=== PATIENT | male | born 1970 | race Caucasian/White ===

== ENCOUNTER 2023-07-16 15:28 | Observation (INO) | payer OTHER, SELFPAY ==
[2023-07-16] VITALS (8 sets, daily range): BP systolic 138–166; BP diastolic 85–95; PULSE 68–78; RESP 16; TEMP 36.6–37.1; O2SAT 94–100; BMI 28.1; BMI 25.8; BMI 24.9
--- NOTE | 2023-07-16 15:33 | CT_ITS ---
We are attempting to reach an attending provider to discuss findings. An addendum with communication details will be sent when the communication is complete. EXAM: CT ANGIOGRAPHY HEAD AND NECK WITH INTRAVENOUS CONTRAST CLINICAL INDICATION: Neuro deficit, acute, stroke suspected TECHNIQUE: [place]/head and neck CT angiography protocol performed with intravenous contrast. This CT exam was performed using one or more of the following dose reduction techniques: automated exposure control, adjustment of the mA and/or kV according to patient size, and/or use of iterative reconstruction technique. MIP reconstructed images were created and reviewed. CONTRAST: IV 100mL Isovue-[id number] RADIATION DOSE: CTDIvol = 19.59 mGy, DLP = 748.02 mGy-cm COMPARISON: No relevant prior studies available. FINDINGS: HEAD: RIGHT ANTERIOR CEREBRAL ARTERY: Unremarkable. No significant stenosis at the visualized segments. Anterior communicating artery is present. No aneurysm. RIGHT MIDDLE CEREBRAL ARTERY: Unremarkable. No significant stenosis at the visualized segments. No aneurysm. RIGHT POSTERIOR CEREBRAL ARTERY: Unremarkable. No occlusion or significant stenosis. No aneurysm. RIGHT INTRACRANIAL INTERNAL CAROTID ARTERY: Unremarkable. No significant stenosis. No dissection or occlusion. RIGHT INTRACRANIAL VERTEBRAL ARTERY: Unremarkable. No significant stenosis. No dissection or occlusion. LEFT ANTERIOR CEREBRAL ARTERY: Unremarkable. No significant stenosis at the visualized segments. No aneurysm. LEFT MIDDLE CEREBRAL ARTERY: Unremarkable. No significant stenosis at the visualized segments. No aneurysm. LEFT POSTERIOR CEREBRAL ARTERY: Unremarkable. No occlusion or significant stenosis. No aneurysm. LEFT INTRACRANIAL INTERNAL CAROTID ARTERY: Unremarkable. No significant stenosis. No dissection or occlusion. LEFT INTRACRANIAL VERTEBRAL ARTERY: Unremarkable. No significant stenosis. No dissection or occlusion. BASILAR ARTERY: Unremarkable. No significant stenosis. No aneurysm. OTHER VASCULATURE: There are no acute findings of the right and left internal carotid artery. ALL ABOVE CRITERIA BY NASCET. No vascular malformation. NECK: RIGHT COMMON CAROTID ARTERY: Unremarkable. No significant stenosis. No dissection or occlusion. RIGHT EXTRACRANIAL INTERNAL CAROTID ARTERY: Unremarkable. No significant stenosis. No dissection or occlusion. RIGHT EXTERNAL CAROTID ARTERY: Unremarkable. No occlusion. RIGHT EXTRACRANIAL VERTEBRAL ARTERY: Unremarkable. No significant stenosis. No dissection or occlusion. LEFT COMMON CAROTID ARTERY: Unremarkable. No significant stenosis. No dissection or occlusion. LEFT EXTRACRANIAL INTERNAL CAROTID ARTERY: Unremarkable. No significant stenosis. No dissection or occlusion. LEFT EXTERNAL CAROTID ARTERY: Unremarkable. No occlusion. LEFT EXTRACRANIAL VERTEBRAL ARTERY: Unremarkable. No significant stenosis. No dissection or occlusion. BRACHIOCEPHALIC AND SUBCLAVIAN ARTERIES: Unremarkable as visualized. No occlusion or significant stenosis. LUNG APICES: Unremarkable as visualized. HEAD and NECK: BONES/JOINTS: Unremarkable. No discrete lytic or blastic abnormalities. SOFT TISSUES: Unremarkable. OTHER FINDINGS: There are no acute findings of the [place] without a demonstrated aneurysm or hemodynamically significant stenosis. ALL ABOVE CRITERIA BY NASCET. Post-processing of the angiographic images was performed, with axial imaging and 3D reconstruction. MIPS images were obtained. CAROTID STENOSIS REFERENCE USING NASCET CRITERIA: % ICA stenosis = (1 - narrowest ICA diameter/diameter of distal cervical ICA) x 100. Mild - <50% stenosis. Moderate - 50-69% stenosis. Severe - 70-94% stenosis. Near occlusion - 95-99% stenosis. Occluded - 100% stenosis. CT/STROKE CTA Head AND Neck W/Con IMPRESSION: 1. There are no acute findings of the [place] without a demonstrated aneurysm or hemodynamically significant stenosis. ALL ABOVE CRITERIA BY NASCET. 2. There are no acute findings of the right and left internal carotid artery. ALL ABOVE CRITERIA BY NASCET. Electronically Signed: Placido Herrera MD at 16:04 EDT ,
--- NOTE | 2023-07-16 15:33 | CT_ITS ---
We are attempting to reach an attending provider to discuss findings. An addendum with communication details will be sent when the communication is complete. EXAM: CT HEAD WITHOUT INTRAVENOUS CONTRAST CLINICAL INDICATION: Neuro deficit, acute, stroke suspected TECHNIQUE: Multiple axial images were obtained of the head without intravenous contrast. This CT exam was performed using one or more of the following dose reduction techniques: automated exposure control, adjustment of the mA and/or kV according to patient size, and/or use of iterative reconstruction technique. COMPARISON: No relevant prior studies available. FINDINGS: BRAIN AND EXTRA-AXIAL SPACES: Unremarkable. No intra- or extra-axial hemorrhage. No evidence of acute infarct. No intracranial mass or mass effect. There is preservation of the [place]/white matter interface. Posterior fossa structures are unremarkable. Ventricles are appropriate for age. No hydrocephalus. Basal cisterns are patent. BONES/JOINTS: Unremarkable. No discrete lytic or blastic abnormalities. SINUSES: Unremarkable as visualized. Clear. MASTOID AIR CELLS: Unremarkable. Clear. ORBITS: Visualized globes, extraocular muscles, optic nerves and retrobulbar fat appear unremarkable. aspects 10. CT/STROKE Brain/Head without Cont IMPRESSION: Negative head/brain CT without intravenous contrast. Electronically Signed: Placido Herrera MD at 15:53 EDT ,
--- NOTE | 2023-07-16 15:37 | ED.VIS.STROK ---
HPI History of Present Illness Chief Complaint: Stroke Alert Detail of Chief Complaint: Paresthesias Informant: patient Narrative Narrative: Patient presents with paresthesias to left face as well as left arm and left leg. Patient states that he feels like that side of his body is asleep. He believes symptoms started about the time where he started doing laundry today around 12:15 PM. Symptoms seem to improve for short time and then came back. Denies headache. Denies falls or head injuries. He denies trouble with speech or vision. He denies weakness. PFSH PFSH Medical History no medical history Home Medications NK 07/16/23 [History Last Taken Unknown] Allergy/AdvReac Type Severity Reaction Status Date / Time No Known Allergies Allergy Verified 07/16/23 15:45 Surgical History (Updated 07/16/23 @ 15:44 by Rahel Sosa) History of right knee surgery Social History Smoking Status: Never smoker ROS ROS ED Review of Systems ROS Unobtainable: other Constitutional Constitutional ED: Reports lethargy; Denies chills, fever(s), sweats or weight loss Eyes Eyes: Denies blurry vision, change in vision or diplopia ENT ENT ED: Denies rhinorrhea or sore throat Cardiovascular Cardiovascular: Denies chest pain, orthopnea or racing heartbeat Respiratory/Chest Respiratory/Chest: Denies cough, dyspnea, dyspnea on exertion, orthopnea or sputum Gastrointestinal Gastrointestinal: Denies abdominal pain, diarrhea, nausea or vomiting Genitourinary Genitourinary ED: Denies dysuria, hematuria or urinary frequency Musculoskeletal Musculoskeletal: Denies arthralgias, back pain, myalgias or neck pain Integumentary Denies abscess, Abrasions or rash Neurologic Neurologic: Reports paresthesias; Denies headache(s) or weakness Psychiatric Psychiatric: Denies anxiety, depression or suicidal thoughts Endocrine Endocrinology: Denies polydipsia, polyphagia or polyuria Hematologic/Lymphatic Hematologic/Lymphatic: Denies easy bleeding, easy bruising or lymphadenopathy Allergic/Immunologic Allergic/Immunologic ED: Denies mouth swelling, tongue swelling or urticaria EXAM Physical Exam Const Vital Signs: 07/16/23 15:31 07/16/23 15:28 07/16/23 15:44 Temperature 97.8 F Temperature Source Temporal Pulse Rate 78 76 Respiratory Rate 16 16 Blood Pressure 150/88 H 163/91 H Blood Pressure Mean 108 115 Pulse Ox 100 99 Oxygen Delivery Method Room Air Room Air Room Air 07/16/23 16:00 Temperature Temperature Source Pulse Rate 75 Respiratory Rate 16 Blood Pressure 166/95 H Blood Pressure Mean 118 Pulse Ox 97 Oxygen Delivery Method Room Air Positive well nourished and well developed General Appearance ED: well developed and NAD HEENT Reports TM's clear and moist mucous membranes normocephalic and atraumatic; Negative for trauma or tenderness Tympanic Membrane ED: Yes TM's clear Eyes PERRL and EOMs intact bilaterally General Eye ED: Negative for pale conjunctiva or scleral icterus Neck no lymphadenopathy, supple and no JVD General: Negative for tenderness Chest Wall inspection of chest normal and palpation of chest normal Chest: Negative for tenderness Resp normal respiratory effort and clear to auscultation bilaterally Effort and Inspection: Negative for respiratory distress or pain with movement Auscultation: Negative for rhonchi, wheezes or diminished lung sounds Cardio regular rate, regular rhythm, S1 normal heart sound, S2 normal heart sound and no murmurs Peripheral Pulses: pulses 2+ throughout GI normal to inspection, nondistended, normoactive bowel sounds, soft to palpation, non-tender, non-distended and no masses Back/Spine no CVA tenderness and no thoracic nor lumbar tenderness Extremity normal to inspection General Extremety ED: Negative for edema General Extremity: Negative for edema Neuro oriented x3, CN's II-XII intact bilaterally, no sensory deficits noted and gait normal Neuro Narrative: NIH stroke scale is a 1 for the paresthesias however no other focal deficits noted. No weakness noted. Sensorium / Orientation: awake, alert, oriented to person, oriented to place and oriented to time Motor Exam: strength 5/5 throughout and strength abnormal Psych mental status grossly normal Skin no rashes or lesions noted and no wounds MDM MDM MDM Narrative Medical decision making narrative: Patient presents with paresthesias to the left side of his body for about 3 hours and 15 minutes now. No other focal weakness. Stroke team was called on arrival to the emergency department. Patient states that he can still feel me touching his arm and his leg as well as his face. Patient had a negative CT scan of the brain without contrast. Patient was seen by stroke neurologist who did not feel thrombolytics were indicated and I am certainly in agreement. Recommended admission for MRI to complete stroke work-up. CBC with differential obtained showed an elevated white count of 17.8 with hemoglobin of 16 and platelet count of 391. Chemistries unremarkable. Patient tells me he has been under a lot of stress. Lab Data Attestation: I reviewed the patient's lab results. Labs: Laboratory Results - last 24 hr 07/16/23 15:30 WBC 17.8 H RBC 5.33 Hgb 16.0 Hct 48.7 MCV 91.4 MCH 30.0 MCHC 32.9 RDW Std Deviation 46.4 H RDW Coeff of [place] 13.7 Plt Count 391 MPV 9.1 Immature Gran % (Auto) 0.500 Neut % (Auto) 76.2 H Lymph % (Auto) 17.4 L [place] % (Auto) 4.9 Eos % (Auto) 0.4 Baso % (Auto) 0.6 Absolute Neuts (auto) 13.6 H Absolute Lymphs (auto) 3.10 Nucleated RBC % 0 PT 13.2 INR 1.0 APTT 28.5 Sodium 139 Potassium 3.9 Chloride 108 H Carbon Dioxide 25.0 Anion Gap 6 BUN 7 Creatinine 0.88 Estim Creat Clear Calc 106.96 Est GFR (MDRD) Af Amer 118 Est GFR (MDRD) Non-Af 97 BUN/Creatinine Ratio 8.0 L Glucose 89 Calcium 10.1 Troponin I High Sens 10 Radiography Diagnostic Testing: Clinical Impression(s) from Imaging Studies Brain CT 07/16/23 15:33 IMPRESSION: Negative head/brain CT without intravenous contrast. Electronically Signed: Placido Herrera MD at 15:53 EDT , ADDENDUM: 07/16/23 1601 IMPRESSION: Negative head/brain CT without intravenous contrast. N.B. : The above Results were Read Back by Placido Herrera MD to Kathi Mcconnell DO, and understanding confirmed on 07/16/2023 15:54:42 (ET). Electronically Signed: Placido Herrera MD at 15:53 EDT , Head/Neck CTA 07/16/23 15:33 IMPRESSION: 1. There are no acute findings of the [place] without a demonstrated aneurysm or hemodynamically significant stenosis. ALL ABOVE CRITERIA BY NASCET. 2. There are no acute findings of the right and left internal carotid artery. ALL ABOVE CRITERIA BY NASCET. Electronically Signed: Placido Herrera MD at 16:04 EDT , EKG Initial EKG: Attestation: I personally reviewed and interpreted this EKG as follows: Comments: Sinus rhythm with rate 76 bpm with no acute ST segment changes Discharge Plan Triage Chief Complaint: Stroke Alert ED Provider: Kathi Mcconnell Dx/Rx/DC Orders Clinical Impression: Paresthesias, Leukocytosis, Hyperchloremia Prescriptions: No Action NK Primary Care Provider: NOT,DEFINED Referrals: NOT,DEFINED [Primary Care Provider] - Disposition Disposition: Acute Care Hospital
[2023-07-16 15:38] LABS: Absolute Neutrophil Count 13.6 X10^3/uL (2.0-7.7); Basophil% 0.6 % (0-1); Eosinophil# 0.07 X10^3/uL; Eosinophils% 0.4 % (0-5); Hematocrit 48.7 % (40-54); Lymphocyte % 17.4 % (19-41); Mean Corp Hgb Conc 32.9 g/dL (32-36); Mean Corpuscular Volume 91.4 fL (80-94); Mean Platelet Vol. 9.1 fl (6.2-12.0); Monocyte# 0.88 X10^3/uL; Monocyte% 4.9 % (0-10); NRBC Flagged by Analyzer 0 % (0-5); Neutrophil # 13.58 X10^3/uL (2.7-7.7); Neutrophil % 76.2 % (47-70); Platelet Count 391 K/mm3 (150-450); RBC Distribution Width CV 13.7 % (11.6-14.6); RBC Distribution Width SD 46.4 fl (35.1-43.9); Red Blood Count 5.33 M/mm3 (4.6-6.2); White Blood Count 17.8 K/mm3 (4.4-11.0)
[2023-07-16 15:48] LABS: Prothrombin Time (Protime)PT. 13.2 SECONDS (11.7-14.9)
[2023-07-16 15:49] LABS: Partial Thromboplast Time 28.5 Seconds (24.1-36.2)
[2023-07-16 15:57] LABS: Anion Gap 6 (5-15); BUN 7 mg/dL (7-18); Calcium,Total 10.1 mg/dL (8.5-10.1); Chloride 108 mmol/L (98-107); Creatinine, Serum 0.88 mg/dL (0.70-1.30); EST Glomerular Filtration Rate 97 mL/min (>60); Est Glom Filt Rate - Afr Amer 118 mL/min (>60); Estimated Creatinine Clearance 106.96 ml/min; Glucose 89 mg/dL (74-106); Potassium 3.9 mmol/L (3.5-5.1); Sodium Level 139 mmol/L (136-145); Troponin-I HS 10 pg/mL (3.0-78.0)
--- NOTE | 2023-07-16 15:59 | ED.RN ---
PT REPORT FEELING TINGLING IN LEFT LEG ARM/SHOULDER JAW.
--- NOTE | 2023-07-16 16:06 | ED.RN ---
NEUROLOGY BEAMED IN [facility] DONE. DR CARBONE AT [facility] WITH PT.
[2023-07-16 16:10] LABS: Alcohol, Blood (Medical)-Serum < 3.0 mg/dL
--- NOTE | 2023-07-16 16:11 | HP.PCM_ITS ---
HPI - General General Date of Admission: 07/16/23 Date of Service: 07/16/23 Chief Complaint: stroke like symptoms HPI Narrative TOÑA STEVEN, is a 52 M with a PMH as outlined who presents via the ED on 07/16/2023 with a complaint of stroke like symptoms. His last known well was ~ 2:15pm on the day of admission; he was doing laundry and noted that he had numbness and parasthesias to his left face, left arm and left leg and felt like the left side of his body was asleep. He denied any slurred speech, dizziness, expressive or receptive aphasia, weakness or numbness or any other symptoms. Review of systems was otherwise negative. Vitals in the ED were BP of 166/95, LA of 75, RR of 16 and oxygen sats of 97% on room air. CBC showed hb of 16, wbc of 17.8 and platelets of 391. INR was 1. CHemistry was unremarkable and serum alcohol level was <3. CT of the brain showed no acute intracranial pathology, and CTA of the head and neck showed no acute intracranial pathology. HE is being admitted to rule out a stroke. [facility] Medical History no medical history Home Medications NK 07/16/23 [History Last Taken Unknown] Allergy/AdvReac Type Severity Reaction Status Date / Time No Known Allergies Allergy Verified 07/16/23 15:45 Surgical History History of right knee surgery Social History Smoking Status: Never smoker ROS Constitutional Constitutional: Denies anorexia, change in weight, chills, fatigue, fever(s), malaise or weakness Eyes Eyes: Denies blurry vision, change in vision or double vision ENT HEENT: Denies dysphagia, headache(s), hearing loss, loss taste/smell, nasal discharge or throat swelling Cardiovascular Cardiovascular: Denies chest pain, edema, orthopnea, palpitations, paroxysmal nocturnal dyspnea or syncope Respiratory/Chest Respiratory/Chest: Denies cough, shortness of breath at rest or shortness of breath with exertion Gastrointestinal Gastrointestinal: Denies abdominal pain, nausea or vomiting Genitourinary Genitourinary: Denies dysuria Musculoskeletal Musculoskeletal: Denies back pain, joint stiffness, limited range of motion, muscle weakness, neck pain or stiffness Neurologic Neurologic: Reports numbness, sensory deficit and tingling; Denies abnormal gait, abnormal speech, confusion, dizziness, focal weakness, headache(s), lack of coordination, seizures, tremor(s) or weakness Psychiatric Psychiatric: Denies anxiety or depression Endocrine Endocrinology: Denies change in body appearance Vital Signs Vital Signs Vital Signs: 07/16/23 15:31 07/16/23 15:28 07/16/23 15:44 Temperature 97.8 F Temperature Source Temporal Pulse Rate 78 76 Respiratory Rate 16 16 Blood Pressure 150/88 H 163/91 H Blood Pressure Mean 108 115 Pulse Ox 100 99 Oxygen Delivery Method Room Air Room Air Room Air 07/16/23 16:00 Temperature Temperature Source Pulse Rate 75 Respiratory Rate 16 Blood Pressure 166/95 H Blood Pressure Mean 118 Pulse Ox 97 Oxygen Delivery Method Room Air Weight Weight: 185 lb 3.013 oz Body Mass Index (BMI) 25.8 Physical Exam Const alert, oriented x3, no apparent distress and well nourished General Appearance: cooperative and well developed HEENT normocephalic, head/scalp atraumatic, EAC's normal, moist oral mucous membranes and oropharynx normal Eyes PERRL and EOMs intact bilaterally Neck no lymphadenopathy General: trachea midline Lymph Lymphatic: no lymphadenopathy noted Resp normal respiratory effort, normal air movement and clear to auscultation bilaterally Cardio regular rate, regular rhythm, S1 normal heart sound, S2 normal heart sound and no murmurs GI normal to inspection, nondistended, normoactive bowel sounds, soft to palpation, non-tender and non-distended Extremity normal capillary refill, no clubbing, cyanosis or edema and no calf tenderness General Extremity: no tenderness to palpation of joints or extremities Skin General Skin Exam: no breakdown Neuro CN's II-XII intact bilaterally, no focal motor deficits and no sensory deficits noted Neuro Narrative: numbnesss and tingling have resolved Motor Exam: strength 5/5 throughout Psych thought process normal, cooperative and affect normal Appearance: appropriate Results Lab / Micro Data 07/16/23 15:30 07/16/23 15:30 Labs: Laboratory Results - last 24 hr 07/16/23 15:30: WBC 17.8 H, RBC 5.33, Hgb 16.0, Hct 48.7, MCV 91.4, MCH 30.0, MCHC 32.9, RDW Std Deviation 46.4 H, RDW [place]eff of [place] 13.7, Plt Count 391, MPV 9.1, Immature Gran % (Auto) 0.500, Neut % (Auto) 76.2 H, Lymph % (Auto) 17.4 L, [place] % (Auto) 4.9, Eos % (Auto) 0.4, Baso % (Auto) 0.6, Absolute Neuts (auto) 13.6 H, Absolute Lymphs (auto) 3.10, Nucleated RBC % 0, PT 13.2, INR 1.0, APTT 28.5, Sodium 139, Potassium 3.9, Chloride 108 H, Carbon Dioxide 25.0, Anion Gap 6, BUN 7, Creatinine 0.88, Estim Creat Clear Calc 106.96, Est GFR (MDRD) Af Amer 118, Est GFR (MDRD) Non-Af 97, BUN/Creatinine Ratio 8.0 L, Glucose 89, Calcium 10.1, Troponin I High Sens 10 07/16/23 15:50: Ethyl Alcohol < 3.[address] 07/16/23 15:33 IMPRESSION: Negative head/brain CT without intravenous contrast. Electronically Signed: Placido Herrera MD at 15:53 EDT , ADDENDUM: 07/16/23 1601 IMPRESSION: Negative head/brain CT without intravenous contrast. N.B. : The above Results were Read Back by Placido Herrera MD to Kathi Mcconnell DO, and understanding confirmed on 07/16/2023 15:54:42 (ET). Electronically Signed: Placido Herrera MD at 15:53 EDT , Head/Neck CTA 07/16/23 15:33 IMPRESSION: 1. There are no acute findings of the [place] without a demonstrated aneurysm or hemodynamically significant stenosis. ALL ABOVE CRITERIA BY NASCET. 2. There are no acute findings of the right and left internal carotid artery. ALL ABOVE CRITERIA BY NASCET. Electronically Signed: Placido Herrera MD at 16:04 EDT Reading Location ID and State: [facility] / [place] , Service support , Assessment & Plan Assessment/Plan (1) Paresthesias: PLAN: Plan #STroke like symptoms * admitted with complaints of right sided numbness and tingling which have now resolved * CT of the brain showed no acute intracranial pathology. CTA of the head and neck showed no hemodynamically significant stenosis * get MRI of the brain and 2D echo * PO aspirin 81mg daily * check lipid profile and A1C * consult PT/OT * fall precautions. * * #LEucocytosis * etiology is unclear * no evidence of infection. Wbc is 17. * will monitor * DVT Prophylaxis: SCDs Code status: full code * patient and counseled about differences between full code, DNRCC and DNRCCA. Patient elects to be full code. * Total face to face time spent: 17 mins Charges/Coding Visit Charges Inpatient E&M: 54974 Init Hosp L2 Procedures Hospitalists Procedures: 56141 Advncd Care Plan 30 Min
--- NOTE | 2023-07-16 16:30 | RAD_ITS ---
STUDY: X-RAY CHEST REASON FOR EXAM: Male, 52 years old. CHEST PAIN Neuro deficit, acute, stroke suspected TECHNIQUE: XR Chest 1 View COMPARISON: None FINDINGS: There is no demonstrated pleural abnormality. Normal size heart. Normal mediastinum and magan. Normal visualized pulmonary arteries. Normal visualized aortic arch and descending thoracic aorta. Normal visualized thoracic spine. Normal visualized ribs, clavicles, and shoulders. There are no acute findings of the upper abdomen. RAD/Chest 1 View IMPRESSION: There are no acute findings. Electronically Signed: Placido Herrera MD at 17:16 EDT ,
[2023-07-17 01:16] VITALS: BP 119/66; PULSE 55; RESP 18; TEMP 35.9; O2SAT 95
[2023-07-17 05:20] VITALS: BP 137/93; PULSE 58; RESP 18; TEMP 35.8; O2SAT 96
[2023-07-17 05:48] LABS: Absolute Lymphocyte Count 3.19 X10^3/uL (0.83-4.51); Absolute Neutrophil Count 6.1 X10^3/uL (2.0-7.7); Eosinophil# 0.18 X10^3/uL; Eosinophils% 1.7 % (0-5); Hematocrit 46.3 % (40-54); Hemoglobin 14.7 g/dL (13.0-16.5); Lymphocyte # 3.19 X10^3/ul (0.83-4.51); Lymphocyte % 30.8 % (19-41); Mean Corp Hgb Conc 31.7 g/dL (32-36); Mean Corpuscular Hgb 30.1 pg (27.0-32.0); Mean Corpuscular Volume 94.7 fL (80-94); Mean Platelet Vol. 9.7 fl (6.2-12.0); Monocyte# 0.72 X10^3/uL; NRBC Flagged by Analyzer 0 % (0-5); Neutrophil % 58.9 % (47-70); Platelet Count 323 K/mm3 (150-450); RBC Distribution Width CV 13.8 % (11.6-14.6); RBC Distribution Width SD 47.9 fl (35.1-43.9); Red Blood Count 4.89 M/mm3 (4.6-6.2); White Blood Count 10.4 K/mm3 (4.4-11.0)
[2023-07-17 06:26] LABS: Anion Gap 1 (5-15); BUN 15 mg/dL (7-18); BUN/Creat Ratio 17.2 RATIO (10-20); Calcium,Total 8.6 mg/dL (8.5-10.1); Chloride 107 mmol/L (98-107); Cholesterol 156 mg/dL (200); Creatinine, Serum 0.87 mg/dL (0.70-1.30); EST Glomerular Filtration Rate 98 mL/min (>60); Est Glom Filt Rate - Afr Amer 119 mL/min (>60); Estimated Creatinine Clearance 108.19 ml/min; Glucose 112 mg/dL (74-106); High Density Lipoprotein 42 mg/dL; Potassium 3.7 mmol/L (3.5-5.1); Sodium Level 138 mmol/L (136-145); Triglycerides 80 mg/dL; Very Low Density Lipoprotein 16 mg/dL (5-40)
--- NOTE | 2023-07-17 07:00 | ECHOD_ITS ---
Reason For Study: TIA/CVA Procedure This was a 2D Doppler, Color Flow transthoracic echocardiogram. Exam performed portable in patient room. Left Ventricle Normal LV size. Mild concentric left ventricular hypertrophy. Left ventricular systolic function is normal. The estimated ejection fraction is 60 %. No evidence for diastolic dysfunction. Right Ventricle Normal RV size. Normal systolic function. Atria The left and right atria are normal. Bubble contrast study negative for right to left interatrial shunt. Mitral Valve The mitral valve is structurally normal. No prolapse or stenosis seen. Trivial mitral valve insufficiency. Tricuspid Valve Normal tricuspid valve. Trivial tricuspid valve insufficiency. Unable to estimate RV systolic pressure due to insufficient tricuspid regurgitant envelope. Aortic Valve Trisinus/trileaflet aortic valve. Pulmonic Valve Normal pulmonic valve. Trivial pulmonic valve insufficiency. Great Vessels Normal aortic root. Pericardium/Pleural No pericardial effusion. Medication Performed a rapid injection of agitated mix of 9 cc saline and 1cc air to assess for atrial septal defect. MMode/2D Measurements & Calculations LVIDd: 4.4 cm IVSd: 1.3 cm Ao root diam: 2.9 cm LVIDs: 2.7 cm LVPWd: 1.3 cm RVDd: 2.8 cm FS: 38.9 % LAV(MOD-bp): 50.0 ml LVAd ap4: 29.0 cm2 SV(MOD-sp4): 50.5 ml LAV(MOD-bp) Indexed: 24.9 ml/m2 LVLd ap4: 8.7 cm LAV(MOD-sp2): 48.6 ml EDV(MOD-sp4): 80.2 ml LAV(MOD-sp4): 44.1 ml EDV(sp4-el): 82.2 ml LVAs ap4: 15.3 cm2 LVLs ap4: 7.0 cm ESV(MOD-sp4): 29.7 ml ESV(sp4-el): 28.3 ml EF(MOD-sp4): 62.9 % EF(sp4-el): 65.6 % SV(sp4-el): 53.9 ml LA A4 area: 17.7 cm2 LA dimension(2D): 3.9 cm RA A4 area: 12.1 cm2 TAPSE: 2.3 cm Time Measurements MV dec time: 0.21 sec Doppler Measurements & Calculations MV E max jorge: 79.3 cm/sec Lat Peak E' Jorge: 11.1 cm/sec Med Peak E' Jorge: 8.6 cm/sec MV A max jorge: 58.2 cm/sec E/E' lat: 7.2 E/E' med: 9.2 MV E/A: 1.4 MV dec slope: 382.7 cm/sec2 Ao V2 max: 144.0 cm/sec LV V1 max: 123.3 cm/sec Ao max P.3 mmHg LV V1 max P.1 mmHg Ao V2 mean: 101.0 cm/sec LV V1 mean P.4 mmHg Ao mean P.7 mmHg LV V1 mean: 85.3 cm/sec Ao V2 VTI: 34.0 cm LV V1 VTI: 26.2 cm AV (velocity ratio): 0.77 PA V2 max: 123.8 cm/sec ECHO/Echo Complete Interpretation Summary The estimated ejection fraction is 60 %. Mild concentric left ventricular hypertrophy. Bubble contrast study negative for right to left interatrial shunt. Ordering Physician: Bell Moreno Performed By: Jessica Ni RDCS, RVT
[2023-07-17 07:23] VITALS: O2SAT 96
--- NOTE | 2023-07-17 09:00 | MRI_ITS ---
EXAM: MR HEAD WITHOUT INTRAVENOUS CONTRAST CLINICAL INDICATION: TIA. L SIDED PARESTHESIA X FEW HOURS, RESOLVED NOW TECHNIQUE: Multiplanar and multisequence MR images of the brain were obtained without intravenous contrast. COMPARISON: CT head without contrast 07/16/2023. FINDINGS: BRAIN AND EXTRA-AXIAL SPACES: Unremarkable. No intra- or extra-axial hemorrhage. No intracranial mass or mass effect. Posterior fossa structures are unremarkable. Ventricles are appropriate for age. No hydrocephalus. Basal cisterns are patent. No diffusion restriction to suspect acute or subacute ischemic infarct. No focal signal abnormalities throughout the brain parenchyma in all pulse sequences. SELLA: Unremarkable. Normal sella turcica, pituitary gland, infundibular stalk, optic chiasm and hypothalamus. AUDITORY SYSTEM: Unremarkable. The internal auditory canals are patent. BONES/JOINTS: Unremarkable. No discrete lytic or blastic abnormalities. SINUSES: Unremarkable as visualized. Clear. MASTOID AIR CELLS: Unremarkable as visualized. Clear. ORBITS: Unremarkable as visualized. Both globes, extraocular muscles, optic nerves and retrobulbar fat appear unremarkable. VASCULATURE: Unremarkable as visualized. Normal flow voids in the major intracranial circulation. MRI/Brain without Contrast IMPRESSION: Negative MRI brain without intravenous contrast. Electronically Signed: Neftali Miller MD at 11:17 EDT ,
[2023-07-17 09:20] VITALS: BP 138/84; PULSE 60; RESP 16; TEMP 36.6; O2SAT 98
--- NOTE | 2023-07-17 13:08 | PHA.DC_ITS ---
Pharmacy [facility] Pharmacy Service has performed discharge medication reconciliation and counseling for this patient. The patient's discharge medication list was reviewed for discrepancies and discrepancies were resolved. The patient was counseled on the following discharge medications and changes in medications for homegoing were reviewed. The Reason for Use, instructions for use, and potential side effects were reviewed for all new medications. The patient's questions regarding all of their medications were answered. 1. Aspirin 81 mg oral daily The patient was able to verbally demonstrate an understanding of their discharge medications. The patient was counselled on new medication by pharmacy informaticist Noreen. Medications at Discharge Home Medications aspirin 81 mg capsule 81 mg PO DAILY #30 caps 07/17/23
--- NOTE | 2023-07-17 14:23 | DS.PCM_ITS ---
Providers Date of Admission: 07/16/23 Date of Discharge: 07/17/23 Primary Care Physician: No Primary Care Phys Reason For Visit: TIA Diagnosis Discharge Diagnosis (1) Paresthesias: Status: Acute Code(s): R20.2 - Paresthesia of skin Plan #STroke like symptoms * admitted with complaints of right sided numbness and tingling which have now resolved * CT of the brain showed no acute intracranial pathology. CTA of the head and neck showed no hemodynamically significant stenosis * get MRI of the brain and 2D echo * PO aspirin 81mg daily * check lipid profile and A1C * consult PT/OT * fall precautions. * * #LEucocytosis * etiology is unclear * no evidence of infection. Wbc is 17. * will monitor * DVT Prophylaxis: SCDs Code status: full code * patient and counseled about differences between full code, DNRCC and DNRCCA. Patient elects to be full code. * Total face to face time spent: 17 mins Medications at Discharge Home Medications aspirin 81 mg capsule 81 mg PO DAILY #30 caps 07/17/23 Hospital Course Operations None Procedures 2-D Echocardiogram Summary of Care Provided Minutes Spent on Discharge: 45 Hospital Course: TOÑA STEVEN, is a 52 M with a PMH as outlined who presents via the ED on 07/16/2023 with a complaint of stroke like symptoms. His last known well was ~ 2:15pm on the day of admission; he was doing laundry and noted that he had numbness and parasthesias to his left face, left arm and left leg and felt like the left side of his body was asleep. He denied any slurred speech, dizziness, expressive or receptive aphasia, weakness or numbness or any other symptoms. Review of systems was otherwise negative. Vitals in the ED were BP of 166/95, RI of 75, RR of 16 and oxygen sats of 97% on room air. CBC showed hb of 16, wbc of 17.8 and platelets of 391. INR was 1. CHemistry was unremarkable and serum alcohol level was <3. CT of the brain showed no acute intracranial pathology, and CTA of the head and neck showed no acute intracranial pathology. HE was admitted to rule out a stroke. He had an MRI of the brain which was negative. He had 2D echo which showed EF of 60%, with mild concentric LVH and negative bubble study His symptoms resolved and he felt much better. He was discharged home on 07/17/2023. He was counseled to quit smoking. He is follow-up with his primary care doctor within 1 to 2 weeks. Patient seen and examined prior to discharge. He had no complaints and had an uneventful night. Review of systems otherwise negative. Labs and vitals reviewed. Medication reviewed and reconciled. Physical Exam Const alert, oriented x3, no apparent distress and well nourished General Appearance: cooperative, comfortable, well kempt and well developed HEENT normocephalic, head/scalp atraumatic, hearing grossly normal bilaterally, EAC's normal, moist oral mucous membranes and oropharynx normal Mouth: oral and palatal mucosa normal Eyes PERRL, EOMs intact bilaterally and conjunctivae normal Neck no lymphadenopathy and supple General: trachea midline Lymph Lymphatic: no lymphadenopathy noted and no lymphedema noted Resp normal respiratory effort, normal air movement, no use of accessory muscles and clear to auscultation bilaterally Cardio regular rate, regular rhythm, S1 normal heart sound, S2 normal heart sound and no murmurs GI normal to inspection, nondistended, normoactive bowel sounds, soft to palpation, non-tender and non-distended Extremity normal capillary refill, no clubbing, cyanosis or edema and no calf tenderness General Extremity: no tenderness to palpation of joints or extremities Skin no rashes or lesions noted General Skin Exam: no breakdown Neuro oriented x3, CN's II-XII intact bilaterally, moves all extremities, no focal motor deficits and no sensory deficits noted Sensorium / Orientation: awake and alert Motor Exam: strength 5/5 throughout Psych thought process normal, cooperative and affect normal Appearance: appropriate Weight / BMI Weight Weight: 178 lb 9.191 oz Body Mass Index (BMI) 24.9 ABG / Lab / Microbiology Data 07/17/23 04:50 07/17/23 04:50 Laboratory: Laboratory Results - last 24 hr 07/16/23 15:30: WBC 17.8 H, RBC 5.33, Hgb 16.0, Hct 48.7, MCV 91.4, MCH 30.0, MCHC 32.9, RDW Std Deviation 46.4 H, RDW Coeff of [place] 13.7, Plt Count 391, MPV 9.1, Immature Gran % (Auto) 0.500, Neut % (Auto) 76.2 H, Lymph % (Auto) 17.4 L, Coffee % (Auto) 4.9, Eos % (Auto) 0.4, Baso % (Auto) 0.6, Absolute Neuts (auto) 13.6 H, Absolute Lymphs (auto) 3.10, Nucleated RBC % 0, PT 13.2, INR 1.0, APTT 28.5, Sodium 139, Potassium 3.9, Chloride 108 H, Carbon Dioxide 25.0, Anion Gap 6, BUN 7, Creatinine 0.88, Estim Creat Clear Calc 106.96, Est GFR (MDRD) Af Amer 118, Est GFR (MDRD) Non-Af 97, BUN/Creatinine Ratio 8.0 L, Glucose 89, Calcium 10.1, Troponin I High Sens 10 07/16/23 15:50: Ethyl Alcohol < 3.0 07/17/23 04:50: WBC 10.4, RBC 4.89, Hgb 14.7, Hct 46.3, MCV 94.7 H, MCH 30.1, MCHC 31.7 L, RDW Std Deviation 47.9 H, RDW Coeff of [place] 13.8, Plt Count 323, MPV 9.7, Immature Gran % (Auto) 0.600, Neut % (Auto) 58.9, Lymph % (Auto) 30.8, Coffee % (Auto) 7.0, Eos % (Auto) 1.7, Baso % (Auto) 1.0, Absolute Neuts (auto) 6.1, Absolute Lymphs (auto) 3.19, Nucleated RBC % 0, Sodium 138, Potassium 3.7, Chloride 107, Carbon Dioxide 30.0, Anion Gap 1 L, BUN 15, Creatinine 0.87, Estim Creat Clear Calc 108.19, Est GFR (MDRD) Af Amer 119, Est GFR (MDRD) Non-Af 98, BUN/Creatinine Ratio 17.2, Glucose 112 H, Hemoglobin A1c 5.0, Calcium 8.6, Triglycerides 80, Cholesterol 156, LDL Cholesterol 98, VLDL Cholesterol 16, HDL Cholesterol 42 Radiography Diagnostic Testing: Radiology Impression Brain CT 07/16/23 15:33 IMPRESSION: Negative head/brain CT without intravenous contrast. Electronically Signed: Placido Herrera MD at 15:53 EDT , ADDENDUM: 07/16/23 1601 IMPRESSION: Negative head/brain CT without intravenous contrast. N.B. : The above Results were Read Back by Placido Herrera MD to Kathi Mcconnell DO, and understanding confirmed on 07/16/2023 15:54:42 (ET). Electronically Signed: Placido Herrera MD at 15:53 EDT , Head/Neck CTA 07/16/23 15:33 IMPRESSION: 1. There are no acute findings of the [place] without a demonstrated aneurysm or hemodynamically significant stenosis. ALL ABOVE CRITERIA BY NASCET. 2. There are no acute findings of the right and left internal carotid artery. ALL ABOVE CRITERIA BY NASCET. Electronically Signed: Placido Herrera MD at 16:04 EDT , ADDENDUM: 07/16/23 1612 IMPRESSION: 1. There are no acute findings of the [place] without a demonstrated aneurysm or hemodynamically significant stenosis. ALL ABOVE CRITERIA BY NASCET. 2. There are no acute findings of the right and left internal carotid artery. ALL ABOVE CRITERIA BY NASCET. N.B. : The above Results were Read Back by Placido Herrera MD to Kathi Mcconnell DO, and understanding confirmed on 07/16/2023 16:05:31 (ET). Electronically Signed: Placido Herrera MD at 16:04 EDT , ADDENDUM: 07/16/23 1617 IMPRESSION: 1. There are no acute findings of the [place] without a demonstrated aneurysm or hemodynamically significant stenosis. ALL ABOVE CRITERIA BY NASCET. 2. There are no acute findings of the right and left internal carotid artery. ALL ABOVE CRITERIA BY NASCET. N.B. : The above Results were Read Back by Placido Herrera MD to Kathi Mcconnell DO, and understanding confirmed on 07/16/2023 16:10:24 (ET). Electronically Signed: Placido Herrera MD at 16:04 EDT , Chest X-Ray 07/16/23 16:30 IMPRESSION: There are no acute findings. Electronically Signed: Placido Herrera MD at 17:16 EDT , Brain MRI 07/17/23 09:00 IMPRESSION: Negative MRI brain without intravenous contrast. Electronically Signed: Neftali Miller MD at 11:17 EDT , D/C Instructions Discharge Diet: Low fat / Low cholesterol Discharge Activity: Return to Normal Activity Meaningful Use Info Meaningful Use Diagnoses (Choose all that apply): None applicable Discharge Plan Admission Admit Date/Time: 07/16/23 16:20 Primary Reason for Your Visit: TIA Attending Provider: Bell Moreno Primary Care Provider: Care Physician,No Primary Instructions Patient Instructions: TIA Dc Discharge Orders/Prescriptions Prescriptions: New aspirin 81 mg capsule 81 mg PO DAILY Qty: 30 2RF Referrals / Follow Up: Khalif Paul MD [Med Staff - Active Staff] - Within 2 Weeks (see to establish PCP care) Care Physician,Jessica Primary [Primary Care Provider] - NOT,DEFINED [Non-Staff] - Disposition Disposition (needs filled in before D/C Order can be placed): Home, Self Care Charges/Coding Visit Charges Inpatient E&M: 98648 Disch Hosp >30min
--- NOTE | 2023-07-17 14:41 | CASEMGMT ---
Social Work SW met with patient and introduced self and role as [facility] SW. Patient seated in hospital chair and agreeable to speak with SW. SW engaged patient in conversation regarding insurance as patient's chart reflects self pay. Patient states he has [employer] or [employer] insurance, but does not have his insurance card. Patient agreeable to SW updating registration. SW then educated patient on the correlation between stroke and depression and assisted the patient in completing PHQ9. Patient scored 2, indicating non-minimal depression. Patient declined community resources, no other needs voiced. SW updated registration regarding insurance, [employer] verified. Flor Sorto STOCK HOLDER, PEGGY
--- NOTE | 2023-07-17 15:41 | DCINST_ITS ---
Discharge Instructions Diet Discharge Diet: Low fat / Low cholesterol Activity Discharge Activity: Return to Normal Activity Dressing / Incision Call your doctor if you observe: Fever of 101 or Higher, Shortness of breath, Dizziness, Swelling in the ankles and Chest pain Follow Up Care Test Results: Test results from this visit will be discussed in further detail at your follow- up appointment, if applicable. Discharge Plan Admission Admit Date/Time: 07/16/23 16:20 Primary Reason for Your Visit: TIA Attending Provider: Bell Moreno Primary Care Provider: Care Physician,Jessica Primary Instructions Patient Instructions: TIA Dc Discharge Orders/Prescriptions Prescriptions: New aspirin 81 mg capsule 81 mg PO DAILY Qty: 30 2RF Referrals / Follow Up: Khalif Paul MD [Med Staff - Active Staff] - Within 2 Weeks (see to establish PCP care) Care Physician,Jessica Primary [Primary Care Provider] - NOT,DEFINED [Non-Staff] - Disposition Disposition (needs filled in before D/C Order can be placed): Home, Self Care
[2023-07-17 15:42] VITALS: BP 138/84; PULSE 60; RESP 18; TEMP 36.6; O2SAT 98
[2023-07-19 11:30] LABS: Bedside Glucose 76 mg/dL (74-106)
== END 2023-07-17 11:42 | disposition home or self-care (01) ==
LOC: ED 16:29 → PCU 16:54
PROVIDERS: Admitting Provider Student in an Organized Health Care Education/Training Program; Emergency Provider Emergency Medicine; Visit Provider Student in an Organized Health Care Education/Training Program
DX: R20.2 Paresthesia of skin (principal); D72.829 Elevated white blood cell count, unspecified; E87.8 Other disorders of electrolyte and fluid balance, not elsewhere classified; R20.0 Anesthesia of skin
CPT/HCPCS: 36415; 70450; 70496; 70498; 70551; 71045; 80048; 80061; 82077; 82962; 83036; 84484; 85025; 85610; 85730; 93005; 93306; 94762; 99221; 99285; Q9967; A4216; G0378